=== PATIENT | male | born 1990 | race Caucasian/White ===

== ENCOUNTER 2016-06-04 19:37 | Emergency (ER) | payer BC, OTHER ==
[~2016-06-04] VITALS: Ht 170.2 cm; Wt 52.8 kg
[2016-06-04 19:42] VITALS: BP 112/68; PULSE 73; TEMP 36.8; O2SAT 100; Ht 170.2 cm; Wt 52.8 kg
[2016-06-04] MEDS ORDERED: XYLOCAINE 1%/SOD BICARB 20 ML VIAL INFIL ONE (19:54)
[2016-06-04] MEDS ORDERED: DIPHTHERIA/TETANUS/PERTUSSIS 0.5 ML SYR/VIAL IM. ONE (20:45)
--- NOTE | 2016-06-04 22:13 | EMERGENCY ROOM VISIT NOTE ---
ED Visit Note First contact with patient: 19:50 CHIEF COMPLAINT: Finger laceration HISTORY OF PRESENT ILLNESS: This 26-year-old male patient presents to the emergency department after cutting the right index finger on a gear at work about 2 hours ago. The bleeding has stopped. Denies weakness or numbness of the finger. The patient has full range of motion of the fingers. The patient rates the pain as sharp and 6/10. The patient denies any other injuries. The patient' s tetanus shot is not up to date. REVIEW OF SYSTEMS: A 6 system review of systems was completed with positives and pertinent negatives listed in the HPI. ALLERGIES: No known allergies MEDICATIONS: No chronic medications PMH: Otherwise healthy SOCIAL HISTORY: Employed and lives locally PHYSICAL EXAM: Vital Signs: Reviewed Nurse's notes, vital signs stable. GENERAL : White male, in no acute distress, well developed, well nourished. SKIN: There is a 3.0 cm long laceration on the distal aspect of the right second finger. The edges gape apart with traction. There is no foreign material in the wound and it looks clean. There is no significant bleeding. No deep structures such as tendons, bones, or significant blood vessels are seen in the base of the wound. Extension and flexion of the finger is full and strong. Full range of motion of the wrist and other fingers. Capillary refill less than 2 seconds. Normal sensation to light and sharp touch. EMERGENCY DEPARTMENT COURSE: I examined the patient. Verbal consent was obtained to perform the procedure. Using sterile technique the wound was cleansed with Betadine. 4 ml of 1% buffered lidocaine was used to perform a digital block to anesthetize the patient. The area was sterilely draped. Once the patient was anesthetized, the wound was copiously irrigated under pressure with sterile saline. The wound was explored and there were no deep structures injured. The laceration was repaired using 4 simple interrupted 5-0 nylon sutures. The patient tolerated the procedure well. Hemostasis was achieved. The area was cleaned with sterile saline and dressed with bacitracin ointment and bandage. The patient was given a tetanus booster. The patient was discharged home in good condition. Problem List Medical Problems: (1) No significant medical problems Status: Chronic Surgical Problems: (1) No significant past surgical history Status: Chronic Current/Historical Medications No Active Prescriptions or Reported Meds Allergies Coded Allergies: No Known Allergies (Unverified , 06/04/16) Vital Signs Date Time Temp Pulse Resp B/P Pulse Ox O2 Delivery O2 Flow Rate FiO2 06/04/16 19:42 36.8 73 16 112/68 100 Room Air Medications Administered Medications (Trade) Dose Ordered Sig/Noemi Route Start Time Stop Time Status Last Admin Dose Admin Diphtheria/ Pertussis/Tetanus Vacc (Adacel Inj) 0.5 ml ONCE ONCE IM. 06/04/16 20:45 06/04/16 20:46 DC 06/04/16 21:01 0.5 ML Departure Information Impression Primary Impression: Laceration of finger Dispostion Home / Self-Care Condition GOOD Prescriptions No Active Prescriptions or Reported Meds Forms HOME CARE DOCUMENTATION FORM, IMPORTANT VISIT INFORMATION Patient Instructions My [facility] Additional Instructions Keep wound clean and dry. Do not allow any crusting or dried blood to accumulate on sutures. If this occurs, use a mild soap/water on a Q-tip to clean the wound. Do not use Peroxide to clean the wound as this can delay healing Use an antibiotic ointment like Bacitracin for 3-4 days, then let wound dry. You may bathe and shower as normal, but DO NOT SOAK the wound. Suture removal in about 8-10 days with your Family Doctor or in the ER. Return sooner for any signs of infection, increasing redness, swelling, or drainage.
== END 2016-06-04 21:04 | disposition home or self-care (01) ==
LOC: C.EDB 19:39 → C.EDD 21:04
DX: S61.210A Laceration without foreign body of right index finger without damage to nail, initial encounter (principal); W45.8XXA Other foreign body or object entering through skin, initial encounter; Y92.89 Other specified places as the place of occurrence of the external cause; Y99.0 Civilian activity done for income or pay

== ENCOUNTER 2016-06-13 17:05 | Emergency (ER) | payer OTHER ==
[~2016-06-13] VITALS: Ht 170.2 cm; Wt 55.3 kg
[2016-06-13 17:31] VITALS: BP 103/65; PULSE 71; TEMP 37.1; O2SAT 98; Ht 170.2 cm; Wt 55.3 kg
--- NOTE | 2016-06-13 17:46 | EMERGENCY ROOM VISIT NOTE ---
ED Visit Note First contact with patient: 17:33 CHIEF COMPLAINT: Suture removal This patient returns to the ED today for removal of sutures that were placed 9 days ago. There has been no swelling, redness, or drainage from the wound. The patient feels like the laceration is healing well. REVIEW OF SYSTEMS: Head: No headache, injury or neck pain. Skin: No rash, new lesions, or masses. General: No fever or chills, fatigue, loss of appetite , or significant recent weight gain or loss. PMH: The patient is healthy; there is no significant medical or surgical history. SOCIAL HISTORY: Patient lives at home. PHYSICAL EXAM: Vital Signs: Reviewed Nurse's notes. There is a sutured wound on the right index finger with no signs of infection. There is no erythema, swelling, or tenderness. The region still has superficial healing yet to complete but do believe it is time to remove the sutures. EMERGENCY DEPARTMENT COURSE: The sutures were removed without any difficulty. Due to the overall depth of the wound, it is healing well however superficially it is not fully healed. There are no signs of infection, I do believe the patient would benefit from a Steri-Strip for the next 2-3 days. After verifying consent, the region was cleansed, and a Steri-Strip was placed with benzoin. Patient tolerated this well. Problem List Medical Problems: (1) No significant medical problems Status: Chronic Surgical Problems: (1) No significant past surgical history Status: Chronic Current/Historical Medications No Active Prescriptions or Reported Meds Allergies Coded Allergies: No Known Allergies (Unverified , 06/13/16) Vital Signs Date Time Temp Pulse Resp B/P Pulse Ox O2 Delivery O2 Flow Rate FiO2 06/13/16 17:31 37.1 71 18 103/65 98 Room Air Departure Information Impression Primary Impression: Encounter for removal of sutures Dispostion Home / Self-Care Condition GOOD Prescriptions No Active Prescriptions or Reported Meds Referrals Didier Mccall M.D. (PCP) Patient Instructions My [facility] Additional Instructions DISCHARGE INSTRUCTIONS AND TREATMENT: Please leave the Steri-Strips in place for the next 2-3 days. Please keep the area clean. Please return for signs of infection as we discussed.
== END 2016-06-13 17:56 | disposition home or self-care (01) ==
LOC: C.EDB 17:06 → C.EDD 17:56
DX: Z48.02 Encounter for removal of sutures (principal)